=== PATIENT | female | born 1965 | race Caucasian/White ===

== ENCOUNTER 2017-10-28 19:32 | Emergency (ER) | payer OTHER ==
[2017-10-28 19:43] VITALS: BP 125/74
== END 2017-10-28 22:10 | disposition left against medical advice (07) ==
LOC: ED 19:32
DX: R10.9 Unspecified abdominal pain (principal); Z53.21 Procedure and treatment not carried out due to patient leaving prior to being seen by health care provider

== ENCOUNTER 2017-10-29 08:37 | Day surgery (SDC) | payer OTHER ==
[2017-10-29] MEDS ORDERED: NS 0.9% 1000 ML* 1,000 ML IV ONE (09:25)
[2017-10-29] MEDS ORDERED: Ondansetron INJ* 2 MG/ML VIAL IV ONE (09:25)
[2017-10-29 09:47] LABS: ABS Basophils 0 10^3/ul (0-0.2); ABS Eosinophils 0.1 10^3/ul (0-0.6); ABS Lymphocytes 1.6 10^3/ul (1.0-4.8); ABS Monocytes 0.6 10^3/ul (0-0.8); ABS Neutrophils 5.2 10^3/ul (1.5-7.7); ABS Nucleated RBC 0 10^3/ul; Eosinophil % 1.8 % (0-6); Hematocrit 37 % (35-47); Hemoglobin 12.7 g/dl (12.0-16.0); Lymphocyte % 21.8 % (25-47); Mean Corpuscular HGB Conc 34 g/dl (31-36); Mean Corpuscular Hemoglobin 29 pg (27-31); Mean Corpuscular Volume 85 fL (80-97); Nucleated Red Blood Cells % 0; Platelet Count 203 10^3/ul (150-450); Red Blood Count 4.35 10^6/ul (4.0-5.4); Red Cell Distribution Width 14 % (10.5-15); White Blood Count 7.6 10^3/ul (3.5-10.8)
[2017-10-29 09:49] LABS: Urine Appearance Clear; Urine Blood Negative (Negative); Urine Color Yellow; Urine Ketones Negative (Negative); Urine Protein Negative (Negative); Urine Specific Gravity 1.003 (1.010-1.030); Urine Urobilinogen Negative (Negative)
--- NOTE | 2017-10-29 10:04 | RAD ---
INDICATION: Right lower abdominal pain. COMPARISON: Comparison is made with a prior pelvic ultrasound from May 24, 2008. TECHNIQUE: Multiple real-time transvaginal images of the pelvis were obtained. FINDINGS: The uterus is normal in size and heterogeneous in echogenicity. The uterus measured 7.6 x 3.7 x 4.6 cm. The endometrial echo measured 0.4 cm in thickness. There is a small mass arising from the posterior body of the uterus which appears to be in a subserosal location measuring 1.6 x 1.1 x 1.3 cm most consistent with a fibroid. The right ovary measured 2.3 x 1.4 x 1.7 cm. The left ovary measured 1.2 x 1.3 x 1.2 cm. There is vascular flow within both ovaries. No free intraperitoneal fluid is seen. IMPRESSION: 1. NO EVIDENCE FOR ACUTE FINDING. 2. SMALL SUBSEROSAL LEIOMYOMA.
[2017-10-29 10:06] LABS: EGFR Non-African American 91.7 (>60)
[2017-10-29] MEDS ORDERED: Iohexol 300* (CONTRAST) 10 ML SDV IV ONE (10:19)
[2017-10-29] MEDS ORDERED: Ondansetron ODT TAB* 4 MG ONE (10:26)
[2017-10-29] MEDS ORDERED: Ondansetron ODT TAB* 4 MG PO ONE (10:30)
--- NOTE | 2017-10-29 10:57 | RAD ---
Indication: Right lower quadrant pain. Contrast: Administered 100.4 ml of OMNIPAQUE 300 mg/ml CT of the abdomen and pelvis was performed after oral and IV contrast administration. Coronal and sagittal reconstructed images were obtained. The lung bases demonstrate no pleural fluid, nodules or masses. Heart is of normal size without evidence of pericardial effusion. The liver is normal in size. No focal lesions or intrahepatic ductal dilatation is noted. The gallbladder has been surgically resected. Common duct measures 15 mm but this appears to be due to postcholecystectomy state. Pancreas demonstrates no mass or pancreatic ductal dilatation. No adrenal masses are noted. The kidneys demonstrate symmetric nephrograms without focal lesions. No retroperitoneal lymphadenopathy is noted. No dilated loops of bowel are noted. The retroperitoneal lymphadenopathy is noted.. Duodenal bulb and sweep are unremarkable. No retroperitoneal adenopathy is noted. Aorta and inferior vena cava is unremarkable. No evidence of abnormal adenopathy is noted. The urinary bladder is unremarkable. No adrenal masses are noted. The kidneys demonstrate symmetric nephrograms without focal lesions. The base of the cecum is thickened. The appendix is visualized and measures approximately 7 mm in diameter. There may be some fluid and a appendicolith present. This is consistent with appendicitis. There is periappendiceal infiltration of FAT noted. No dilated loops of bowel are noted. The urinary bladder is unremarkable. Uterus and ovaries are unremarkable. The colon is filled with stool. The bony structures are grossly unremarkable with degenerative disc disease noted. IMPRESSION: Findings consistent with appendicitis and 7 mm appendix and appendicolith and periappendiceal infiltration of fat. There is thickening of the base of the cecum.
[2017-10-29] MEDS ORDERED: ceFOXitin 2 GM IVPREMIX* 2 GM/50 ML BAG IVPB ONE ×2 (11:03→13:26)
[2017-10-29] MEDS ORDERED: Ondansetron INJ* 2 MG/ML VIAL IV PRN ×2 (13:24→16:45)
[2017-10-29] MEDS ORDERED: HYDROmorphone INJ* 1 MG/ML CARPUJECT SYRINGE IV SLOW PU PRN (13:25)
[2017-10-29] MEDS ORDERED: NS 0.9% 1000 ML* 1,000 ML IV SCH (13:30)
--- NOTE | 2017-10-29 13:50 | HP ---
DATE OF ADMISSION: 10/29/2017. CHIEF COMPLAINT: Abdominal pain. HISTORY OF PRESENT ILLNESS: The patient is a 52-year-old female who presents with a chief complaint of abdominal pain. This started yesterday evening. It was originally more centralized and then shifted more to the right lower quadrant. They came to the emergency room last night, but the wait was so long they ended up going home. She came back this morning with still persisting pain. It has not gotten any worse overnight. She has no nausea, no vomiting, no fever, no chills, no diarrhea, no change in bowel or bladder function, no accident, injury or trauma, no antecedent illness, no recent GI bug, and no history of kidney stones. PAST MEDICAL HISTORY: Relatively benign. No major issues. PAST SURGICAL HISTORY: She had a tubal ligation many years ago and a laparoscopic cholecystectomy three years ago. MEDICATIONS: She denies regular medications. She occasionally takes over-the- counter Zantac for some heartburn symptoms. She takes [id number] ibuprofen for some arthritis symptoms. She takes some vitamins. ALLERGIES: She quotes ALLERGY TO AUGMENTIN WHICH CAUSED SOME GI UPSET AT THE TIME. FAMILY HISTORY: Noncontributory. There are no anesthesia reactions or bleeding or clotting disorders. SOCIAL HISTORY: She is . 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 She quit smoking many years ago. She does not drink on a daily basis and does not use any drugs or illicit substances. REVIEW OF SYSTEMS: Benign. No major cardiac issue. No emphysema, bronchitis or other pulmonary disease. No hepatobiliary history other than the gallbladder surgery. She has never had hepatitis or jaundice. No diabetes, thyroid, or other endocrine. She has had occasional reflux or GERD symptoms and takes occasional medicine for that, but other than that, no GI history, no colitis, irritable bowel, spastic colon, or the like. No history of kidney stones or chronic bladder infections. No major gynecologic issues. She had the tubal ligation as noted above. She has also had a relatively recent cervical biopsy that proved to be benign. She has no neuro, muscular, or psych issues. She does have occasional headaches or migraines. She has no bleeding tendencies or anesthesia reaction. PHYSICAL EXAMINATION GENERAL: She is well-developed, well-nourished female consistent with stated age. SKIN: Warm and well-perfused. She is not diaphoretic. She is no jaundice. VITAL SIGNS: Temperature 97.1, pulse 62 and regular, respirations 16 and unlabored, O2 saturation 98 percent, blood pressure 127/80. NECK: Supple without any adenopathy. LUNGS: Clear bilaterally. HEART: Regular, no abnormalities. ABDOMEN: Slightly chunky, soft, and tender in the right lower quadrant. There is a trace Rovsing sign, trace referred rebound sign. No palpable masses or hernias. She has evidence of previous laparoscopic surgery which appears well- healed. EXTREMITIES: Well-perfused and without edema. LABORATORY DATA: Normal white blood count with a slight left shift, normal platelet and hemoglobin. Electrolytes are normal. Her C-reactive protein is elevated at 65. Urinalysis is essentially normal. She has had a pelvic ultrasound which is benign and has has an abdominal CT scan which shows early acute appendicitis. IMPRESSION: Healthy, 52-year-old female with evidence of early acute appendicitis. PLAN/RECOMMENDATIONS: I discussed this with her. We talked about the pros and cons of operative intervention versus the nonoperative antibiotic approach, the difference in length of stay, recovery, risks, and long-term benefits. We have gone over all these issues and she would like to proceed with laparoscopic appendectomy. We will do so as the operative schedule permits. [id number]/[facility] #: [id number] MARSHALL
[2017-10-29] MEDS ORDERED: Dexamethasone IV* 4 MG/ML 1 ML (4 MG) IV SLOW PU ONE (14:21)
[2017-10-29] MEDS ORDERED: Famotidine IV* 10 MG/ML 2 ML (20 mg) IV ONE (14:21)
[2017-10-29] MEDS ORDERED: Buffered Lidocaine 0.9% SYRIN* 5 ML/SYR SYRINGE INTRADERM ONE (14:21)
[2017-10-29] MEDS ORDERED: Famotidine IV* 10 MG/ML 2 ML (20 mg) ONE (15:38)
[2017-10-29] MEDS ORDERED: Dexamethasone IV* 4 MG/ML 1 ML (4 MG) ONE (15:38)
[2017-10-29] MEDS ORDERED: Bupivacaine 0.25% SDV* 30 ML ONE (16:10)
[2017-10-29] MEDS ORDERED: fentaNYL* 50 MCG/ML 5 ML VIAL (250 MCG VIAL) ONE (16:18)
[2017-10-29] MEDS ORDERED: Midazolam* 1 MG/ML 5 ML VIAL (5 MG) ONE (16:19)
[2017-10-29] MEDS ORDERED: Propofol* 10 MG/ML 20 ML BTL IV PUSH ONE (16:20)
[2017-10-29] MEDS ORDERED: Lidocaine 2% PF * 5 ML VIAL ONE (16:20)
[2017-10-29] MEDS ORDERED: Ketorolac INJ* 30 MG/ML 1 ML VIAL ONE (16:20)
[2017-10-29] MEDS ORDERED: oxyCODONE/Acetamin 5/325 MG* TAB PO PRN (16:32)
[2017-10-29] MEDS ORDERED: fentaNYL* 50 MCG/ML 2 ML VIAL (100 MCG VIAL) IV PRN (16:45)
[2017-10-29] MEDS ORDERED: Naloxone* 0.4 MG/ML 1 ML VIAL IV PRN (16:45)
[2017-10-29] MEDS ORDERED: DiMENhydriNATE IV* 50 MG/ML VIAL IV PUSH PRN (16:45)
[2017-10-29] MEDS ORDERED: HYDROmorphone INJ* 1 MG/ML CARPUJECT SYRINGE IV PRN (16:45)
[2017-10-29] MEDS ORDERED: Glycopyrrolate IV* 0.2 MG/ML 1 ML VIAL ONE (17:20)
[2017-10-29] MEDS ORDERED: Neostigmine Methylsulfate* 1 MG/ML 10 ML VIAL (1 mg/ml) ONE (17:20)
[2017-10-29 18:10] VITALS: BP 124/77
--- NOTE | 2017-10-29 18:57 | ED ---
Shady Love Jennifer, scribed for Ajith Figueroa MD on 10/29/17 at 0924 . Abdominal Pain/Female - HPI Summary HPI Summary: The patient is a 52 year old female who presents with abdominal pain since 1430 yesterday. The pain is located in the RLQ and radiates to the right flank. The patient states that the pain will change with movement and worsened in severity last night to across her whole abdomen. The pain is alleviated when she puts her legs up. She additionally complains of nausea. Patient denies vomiting, hematuria, dysuria, bloody stool, and black stool. - History of Current Complaint Chief Complaint: EDFlankPain Stated Complaint: ABDOMINAL PAIN Time Seen by Provider: 10/29/17 08:58 Hx Obtained From: Patient ?: No Onset/Duration: Sudden Onset, Lasting Hours, Lasting Days - one day, Still Present Severity Initially: Moderate Severity Currently: Moderate Pain Intensity: 4 Pain Scale Used: 0-10 Numeric Location: Diffuse - sometimes diffuse depending on position, Discrete At: RLQ Radiates: Yes Radiates to: Flank - Right Character: Sharp Aggravating Factor(s): Movement Alleviating Factor(s): Other: - Legs up Associated Signs and Symptoms: Positive: Other: - abdominal pain, flank pain, nausea. NEGATIVE: vomiting, hematuria, dysuria, bloody stool, black stool Allergies/Adverse Reactions: Allergies Allergy/AdvReac Type Severity Reaction Status Date / Time amoxicillin [From Augmentin] Allergy Nausea And Verified 10/29/17 08:46 Vomiting clavulanic acid Allergy Nausea And Verified 10/29/17 08:46 [From Augmentin] Vomiting Home Medications: Home Medications Cholecalciferol TAB* [Vitamin D TAB*] 1,000 unit PO DAILY 10/29/17 [History Confirmed 10/29/17] Ferrous Sulfate TAB* 325 mg PO DAILY 10/29/17 [History Confirmed 10/29/17] Lactobacillus Acidophilus* [Culturelle*] 1 cap PO DAILY 10/29/17 [History Confirmed 10/29/17] Multivitamins/Minerals TAB* [Theragran/minerals TAB*] 1 tab PO DAILY 10/29/17 [ History Confirmed 10/29/17] Naproxen TAB* [Naprosyn 250 mg TAB*] 500 mg PO DAILY 10/29/17 [History Confirmed 10/29/17] PMH/Surg Hx/FS Hx/Imm Hx Endocrine/Hematology History: Denies: Hx Diabetes Cardiovascular History: Denies: Hx Hypertension GI History: Reports: Hx Gastroesophageal Reflux Disease - PRN MEDICATION FOR Musculoskeletal History: Reports: Other Musculoskeletal History - BUNIONS BOTH FEET Sensory History: Reports: Hx Contacts or Glasses - READING GLASSES Denies: Hx Hearing Aid Opthamlomology History: Reports: Hx Contacts or Glasses - READING GLASSES Neurological History: Reports: Hx Migraine - TREATS WITH EXCEDRIN MIGRAINE OR IBUPROFEN - Cancer History Hx Chemotherapy: No Hx Radiation Therapy: No - Surgical History Surgery Procedure, Year, and Place: TUBAL [id number]-12 YEARS AGO. AGE 12- MOLE REMOVED FROM THE SIDE OF FACE. CHOLECYSTECTOMY Hx Anesthesia Reactions: Yes - HEADACHE AFTER TUBAL LIGATION- STATES WAS A GENERAL ANESTHESIA Infectious Disease History: No Infectious Disease History: Denies: Traveled Outside the [place] in Last 30 Days - Family History Known Family History: Negative: Renal Disease - Social History Alcohol Use: Occasionally Hx Substance Use: No Substance Use Type: Reports: None Hx Tobacco Use: No Smoking Status (MU): Former Smoker Amount Used/How Often: 1 PPD X 5-6 YEARS Have You Smoked in the Last Year: No Review of Systems Negative: Fever, Chills Negative: Erythema Negative: Sore Throat Negative: Chest Pain Negative: Shortness Of Breath, Cough Gastrointestinal: Negative - Bloody/black stool Positive: Abdominal Pain - RLQ, Nausea. Negative: Vomiting Positive: flank pain - right. Negative: dysuria, hematuria Negative: Myalgia, Edema Negative: Rash Neurological: Negative - Dizziness All Other Systems Reviewed And Are Negative: Yes Physical Exam - Summary Physical Exam Summary: Constitutional: Well-developed, Well-nourished, Alert. (-) Distressed Skin: Warm, Dry HENT: Normocephalic; Atraumatic Eyes: Conjunctiva normal Neck: Musculoskeletal ROM normal neck. (-) JVD, (-) Stridor, (-) Tracheal deviation Cardio: Rhythm regular, rate normal, Heart sounds normal; Intact distal pulses; The pedal pulses are 2+ and symmetric. Radial pulses are 2+ and symmetric. (-) Murmur Pulmonary/Chest wall: Effort normal. (-) Respiratory distress, (-) Wheezes, (-) Rales Abd: Soft, exquisite RLQ tenderness, no CVA tenderness. (-) Distension, (-) Guarding, (-) Rebound Musculoskeletal: (-) Edema Lymph: (-) Cervical adenopathy Neuro: Alert, Oriented x3 Psych: Mood and affect Normal Triage Information Reviewed: Yes Vital Signs On Initial Exam: Initial Vitals Temp Pulse Resp BP Pulse Ox 97.1 F 79 16 122/76 98 10/29/17 08:47 10/29/17 08:47 10/29/17 08:47 10/29/17 08:47 10/29/17 08:47 Vital Signs Reviewed: Yes Diagnostics - Vital Signs Vital Signs Temp Pulse Resp BP Pulse Ox 10/29/17 08:47 97.1 F 79 16 122/76 98 - Laboratory Result Diagrams: 10/29/17 09:37 10/29/17 09:37 Lab Statement: Any lab studies that have been ordered have been reviewed, and results considered in the medical decision making process. - CT CT Abd/Pel CT Interpretation: Positive (See Comments) - Findings consistent with appendicitis and 7 mm appendix and appendicolith and periappendiceal infiltration of fat. There is thickening of the base of the cecum. Dr. Figueroa has reviewed this report. CT Interpretation Completed By: Radiologist - Additional Comments Diagnostic Additional Comments: Transvaginal US. Interpreted by a radiologist. IMPRESSION: 1. NO EVIDENCE FOR ACUTE FINDING. 2. SMALL SUBSEROSAL LEIOMYOMA. Dr. Figueroa has reviewed this report. Abdominal Pain Fem Course/Dx - Course Course Of Treatment: The patient is a 52 year old female who presents with abdominal pain since 1430 yesterday. In the ED course the patient was given IV fluids and Zofran. Bloodwork and Urinalysis were obtained. CT Abd/Pel showed Findings consistent with appendicitis and 7 mm appendix and appendicolith and periappendiceal infiltration of fat. There is thickening of the base of the cecum. US Transvaginal obtained. The patient is diagnosed with appendicitis. Dr. Hoff, surgeon, admitted the patient. - Diagnoses Provider Diagnoses: Appendicitis - Provider Notifications Discussed Care Of Patient With: Jose Manuel Hoff Time Discussed With Above Provider: 11:08 Instructed by Provider To: Admit As Inpatient Discharge - Sign-Out/Discharge Documenting (check all that apply): Discharge/Admit/Transfer - Discharge Plan Condition: Fair Disposition: ADMITTED TO [facility] Referrals: No Primary Care Phys,NOPCP [Primary Care Provider] - The documentation as recorded by the Shady eugene Jennifer accurately reflects the service I personally performed and the decisions made by me, Ajith Figueroa MD.
--- NOTE | 2017-10-30 06:09 | OP ---
CC: Dr. Hoff OPERATIVE REPORT: DATE OF OPERATION: 10/29/17 DATE OF : 61 SURGEON: Jose Manuel Hoff MD DREDGE PUMPER: None. ANESTHESIOLOGIST: Derrek Sánchez MD ANESTHESIA: General anesthetic, local infiltration. PRE-OP DIAGNOSIS: Appendicitis. POST-OP DIAGNOSIS: Appendicitis. OPERATIVE PROCEDURE: Laparoscopic appendectomy. DESCRIPTION OF PROCEDURE: The patient was supine on the operating room table. After adequate general anesthetic, compression stockings, Ivan Hugger warmer, and intravenous antibiotics, the abdomen was prepped with antiseptic, draped in a sterile fashion. Local infiltrative anesthesia was administered . Small umbilical incision was created. Blunt port cannula was placed. Insufflation was carried ou t with carbon dioxide. Additional cannulae, 5 mm left lower quadrant and left mid abdomen, were plac ed through small stab wounds under direct vision. The cecum was readily identified and the appendix was turgid and somewhat injected and hyperemic. It was tented upward. A window was created between t he mesentery and the base of the appendix and the mesentery was divided with a espinosa load of the EndoG IA stapler. The base of the appendix was divided with a nelson load of the EndoGIA stapler. The appendi x was placed in a retrieval bag and brought out through the umbilical site. At the distal end of the staple line, there was little oozing, so a couple of clips were placed over this area to achieve hemo stasis. Everything was in good condition. The cannulae were removed. Pneumoperitoneum allowed to e scape. Umbilical fascia was closed with 0 Vicryl, skin with 5-0 Vicryl, followed by Steri- Strips. S he tolerated the procedure well, was awakened, and brought to Recovery in good condition. No complic ations. No drains. Pathologic specimen was appendix. Sponge and instrument counts correct. Estimat ed blood loss was less than 10 mL. [id number]/[facility] #: [id number]
== END 2017-10-29 18:35 | disposition home or self-care (01) ==
LOC: ED 08:37 → OR 13:35
PROVIDERS: ATTEND Surgery
DX: K35.80 Unspecified acute appendicitis (principal); R10.31 Right lower quadrant pain; R11.0 Nausea; K21.9 Gastro-esophageal reflux disease without esophagitis; Z87.891 Personal history of nicotine dependence; D25.2 Subserosal leiomyoma of uterus; M19.90 Unspecified osteoarthritis, unspecified site
CPT/HCPCS: 36415; 74177; 76830; 80053; 81003; 83605; 83690; 85025; 86140; 88304; 99285; A9270-GY; C1776; J0694; J1100; J1885; J2250; J2704; J2710; J3010; Q9967

== ENCOUNTER 2017-11-16 19:53 | Emergency (ER) | payer OTHER ==
--- OUTSIDE RECORDS SUMMARY | 2017-11-16 20:12 | XMS REPORT ---
:1965 External Reference #:[id number] Author Organization [facility] Address [address] [address] Phone [phone] Care Team Providers Name Role Phone DAYAN Lees Care Team Information Dealer Accounts Investigator Unavailable Payers Type Date Identification Numbers Payment Provider Subscriber Commercial Policy Number: [id number] [employer] Laine Cruz PayID: [id number] [address] [place] [address] Medigap Part B Expires: Policy Number: [employer] Insurance Laine Love 2017 [id number] Anthony Group Number: [id number] [address] Group Name: [place] [address] PayID: [id number] Problems Description No Information Social History Type Date Description Comments Smoking Patient is a former smoker Allergies, Adverse Reactions, Alerts Date Description Reaction Status Severity Comments 11/03/2017 Augmentin Nausea and Vomiting active Medications Medication Date Status Form Strength Qnty SIG Indications Ordering Provider Zantac 75 Active Tablets 75mg take 1 tab Unknown 0 by mouth at at bedtime as needed Ibuprofen Active Capsules 200mg as needed Unknown 0 Vital Signs Date Vital Result Comment 11/05/2017 Height 66 inches 5'6" Weight 165.00 lb Heart Rate 68 /min BP Systolic 124 mmHg BP Diastolic 82 mmHg Respiratory Rate 16 /min Body Temperature 96.6 F BMI (Body Mass Index) 26.6 kg/m2 Results Test Date Test Result H/L Range Note Laboratory test 10/29/2017 Surgical Pathology SEE RESULT BELOW 1 finding 1 SEE RESULT BELOW Name: LAINE CRUZ : [address]: Jose Manuel Hoff MD Acct: [id number] Unit: [id number] AGE: 52 Location: OR Re10/29/17 SEX: F Status: DEP [facility] SPEC: [id number] DELVIN: 10/29/17-[address] [facility] [address]: Jose Manuel Hoff MD REQ: [id number] RECD: 10/31/17-1019 STATUS: SOUT _ ORDERED: LEVEL 3 FINAL DIAGNOSIS Appendix, appendectomy: -- Acute appendicitis and jeanne-appendicitis. PRE-OPERATIVE DIAGNOSIS Abdominal pain GROSS DESCRIPTION The specimen is received in formalin labeled, Appendix, and consists of an 8.7 x 0.6 cm vermiform appendix with abundant attached mesoappendix. The serosa is glistening smooth nelson-white with a few focal fibromembranous adhesions. The lumen measures up to 0.4 cm and contains scant fecal material. The mucosa is nelson-white and the wall thickness averages 0.2 cm. Torch Cutter sections, one cassette. Signed by and Reported on: Minda Hunter MD 11/02/17 1508 END OF REPORT DEPARTMENT OF PATHOLOGY, [address] [place] [address] Declan Shah M.D. Director [facility] # [id number] Procedures Date CPT Code Description Status 10/29/2017 33764 Laparoscopy, Surgical, Appendectomy Completed 02/28/2015 51375 Laparoscopy Cholecystectomy Completed Encounters Type Date Location Provider CPT E/M Dx Office Visit 10/29/2017 [facility], [address] K35.80 7:00a Marcelo Castro Plan of Care 11/05/2017 - Jose Manuel Hoff M.D.K35.80 Unspecified acute appendicitisFollow up :As needed
[2017-11-16] MEDS ORDERED: Metoclopramide IV* 5 MG/ML 2 ML VIAL IV ONE (21:02)
[2017-11-16] MEDS: NS 0.9% 1000 ML* 2,000 ML IV ONE ×2 (21:10→21:14)
[2017-11-16 21:20] LABS: ABS Basophils 0 10^3/ul (0-0.2); ABS Eosinophils 0 10^3/ul (0-0.6); ABS Lymphocytes 0.7 10^3/ul (1.0-4.8); ABS Monocytes 0.3 10^3/ul (0-0.8); ABS Neutrophils 3.9 10^3/ul (1.5-7.7); ABS Nucleated RBC 0 10^3/ul; Eosinophil % 0.4 % (0-6); Hematocrit 36 % (35-47); Hemoglobin 12.2 g/dl (12.0-16.0); Lymphocyte % 14.8 % (25-47); Mean Corpuscular HGB Conc 34 g/dl (31-36); Mean Corpuscular Hemoglobin 29 pg (27-31); Mean Corpuscular Volume 86 fL (80-97); Mean Platelet Volume 7.2 um3 (7.4-10.4); Nucleated Red Blood Cells % 0; Platelet Count 235 10^3/ul (150-450); Red Blood Count 4.15 10^6/ul (4.0-5.4); Red Cell Distribution Width 14 % (10.5-15)
[2017-11-16 21:51] LABS: EGFR Non-African American 108.3 (>60)
[2017-11-16 23:13] LABS: Urine Appearance Clear; Urine Blood Negative (Negative); Urine Color Straw; Urine Ketones 1+ (Negative); Urine Protein Negative (Negative); Urine Specific Gravity 1.004 (1.010-1.030); Urine Urobilinogen Negative (Negative)
--- NOTE | 2017-11-16 23:24 | ED ---
Eugenia Love Rebecca, scribed for Amy Etienne MD on 11/16/17 at 2101 . Complex/Multi-Sys Presentation - HPI Summary HPI Summary: Pt is a 52 y/o F who presents to ED c/o N/V. Sx began this morning at 0230 after taking Penicillin at 0230 and Tylenol with codeine at 0100. Denies abdominal pain and diarrhea. 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 Has eaten today, though she vomited it up. She is taking Penicillin for an infected tooth and the dose this morning was her third, having taken the prior 2 without problems. Prior similar episode after taking Augmentin. - History Of Current Complaint Chief Complaint: EDNauseaVomitDiarrh Time Seen by Provider: 11/16/17 20:49 Hx Obtained From: Patient Onset/Duration: Lasting Hours, Still Present Severity Currently: None Location: Negative Associated Signs And Symptoms: Positive: Nausea, Vomiting. Negative: Diarrhea, Abdominal Pain - Allergies/Home Medications Allergies/Adverse Reactions: Allergies Allergy/AdvReac Type Severity Reaction Status Date / Time amoxicillin [From Augmentin] Allergy Nausea And Verified 11/16/17 20:02 Vomiting clavulanic acid Allergy Nausea And Verified 11/16/17 20:02 [From Augmentin] Vomiting PMH/Surg Hx/FS Hx/Imm Hx Endocrine/Hematology History: Denies: Hx Diabetes Cardiovascular History: Denies: Hx Hypertension GI History: Reports: Hx Gastroesophageal Reflux Disease - PRN MEDICATION FOR Musculoskeletal History: Reports: Other Musculoskeletal History - BUNIONS BOTH FEET Sensory History: Reports: Hx Contacts or Glasses - READING GLASSES Denies: Hx Hearing Aid Opthamlomology History: Reports: Hx Contacts or Glasses - READING GLASSES Neurological History: Reports: Hx Migraine - TREATS WITH EXCEDRIN MIGRAINE OR IBUPROFEN - Cancer History Hx Chemotherapy: No Hx Radiation Therapy: No - Surgical History Surgery Procedure, Year, and Place: TUBAL [id number] YEARS AGO. AGE 12- MOLE REMOVED FROM THE SIDE OF FACE. CHOLECYSTECTOMY Hx Anesthesia Reactions: Yes - HEADACHE AFTER TUBAL LIGATION- STATES WAS A GENERAL ANESTHESIA Infectious Disease History: No Infectious Disease History: Denies: Traveled Outside the [place] in Last 30 Days - Family History Known Family History: Negative: Renal Disease - Social History Alcohol Use: Occasionally Hx Substance Use: No Substance Use Type: Reports: None Hx Tobacco Use: No Smoking Status (MU): Former Smoker Amount Used/How Often: 1 PPD X 5-6 YEARS Have You Smoked in the Last Year: No Review of Systems Negative: Fever Positive: Vomiting, Nausea. Negative: Abdominal Pain, Diarrhea All Other Systems Reviewed And Are Negative: Yes Physical Exam - Summary Physical Exam Summary: VITAL SIGNS: Reviewed. GENERAL: ~Patient is a well-developed and nourished female who is lying comfortable in the stretcher. Patient is not in any acute respiratory distress. HEAD AND FACE: No signs of trauma. No ecchymosis, hematomas or skull depressions. No sinus tenderness. EYES: PERRLA, EOMI x 2, No injected conjunctiva, no nystagmus. EARS: Hearing grossly intact. Ear canals and tympanic membranes are within normal limits. MOUTH: Oropharynx within normal limits. NECK: Supple, trachea is midline, no adenopathy, no JVD, no carotid bruit, no c- spine tenderness, neck with full ROM. CHEST: Symmetric, no tenderness at palpation LUNGS: Clear to auscultation bilaterally. No wheezing or crackles. CVS: Regular rate and rhythm, S1 and S2 present, no murmurs or gallops appreciated. ABDOMEN: Soft, non-tender. No signs of distention. No rebound no guarding, and no masses palpated. Mild hyperactive bowel sounds. EXTREMITIES: FROM in all major joints, no edema, no cyanosis or clubbing. NEURO: Alert and oriented x 3. No acute neurological deficits. Speech is normal and follows commands. SKIN: Dry and warm Triage Information Reviewed: Yes Vital Signs On Initial Exam: Initial Vitals Temp Pulse Resp BP Pulse Ox 96.8 F 86 16 135/83 98 11/16/17 19:58 11/16/17 19:58 11/16/17 19:58 11/16/17 19:58 11/16/17 19:58 Vital Signs Reviewed: Yes Diagnostics - Vital Signs Vital Signs Temp Pulse Resp BP Pulse Ox 11/16/17 19:58 96.8 F 86 16 135/83 98 - Laboratory Result Diagrams: 11/16/17 21:14 11/16/17 21:14 Lab Statement: Any lab studies that have been ordered have been reviewed, and results considered in the medical decision making process. Re-Evaluation - Re-Evaluation First Eval Re-Evaluation Time: 22:29 Change: Improved Comment: Pt is feeling better. Complex Multi-Symp Course/Dx Assessment/Plan: Pt is a 52 y/o F who presents to ED c/o N/V since this morning at 0230 after taking Penicillin at 0230 and Tylenol with codeine at 0100, without abdominal pain and diarrhea. Taking Penicillin for an infected tooth and the dose this morning was her third, having taken the prior 2 without problems. Prior similar episode after taking Augmentin. Blood work was done. In the ED course, pt received Reglan and fluids which improved sx. She will be D/C to home with Dx of gastritis and vomiting with Rx for Reglan. She understands and agrees. Allergies noted. - Diagnoses Provider Diagnoses: Gastritis, Vomiting Discharge - Sign-Out/Discharge Documenting (check all that apply): Discharge/Admit/Transfer - Discharge - Discharge Plan Condition: Stable Disposition: HOME Prescriptions: Metoclopramide TAB* [Reglan TAB*] 10 mg PO Q6H PRN #20 tab PRN Reason: Nausea/Vomiting Patient Education Materials: Gastritis (ED), Acute Nausea and Vomiting (ED) Referrals: No Primary Care Phys,NOPCP [Primary Care Provider] - [facility] PHYSICIAN REFERRAL [Outside] - 3 Days Additional Instructions: RETURN TO ED FOR ANY NEW OR WORSENING SYMPTOMS. The documentation as recorded by the Eugenia eugene Rebecca accurately reflects the service I personally performed and the decisions made by , Amy Etienne MD.
[2017-11-16 23:29] VITALS: BP 132/79
== END 2017-11-16 23:33 | disposition home or self-care (01) ==
LOC: ED 19:53
DX: K29.70 Gastritis, unspecified, without bleeding (principal); R11.2 Nausea with vomiting, unspecified
CPT/HCPCS: 36415; 80053; 81003; 82150; 83605; 83690; 85025; 85730; 86140; 96374; 99283; J2765

== ENCOUNTER 2018-12-18 13:18 | Emergency (ER) | payer OTHER ==
--- OUTSIDE RECORDS SUMMARY | 2018-12-18 13:32 | XMS REPORT ---
:1965 Author Organization [facility] Care Team Providers Name Role Phone Misael Mayo Unavailable Unavailable PROBLEMS Type Condition ICD9-CM Code [id number] Code Onset Condition SNOMED Code Dates Status Problem Gallbladder 575.6 Active 339634387 polyp Problem GERD 530.81 Active 220108896 (gastroesophagea l reflux disease) Problem Migraines 346.90 Active 54063532 ALLERGIES No Information ENCOUNTERS Encounter Location Date Diagnosis [facility] [address] [facility] [place], [place] [address] [facility] - Resource - [place] [address] [facility] Dec, [place] [address] [facility] [address] [facility] [place], Dec, [place] K52.9 [place] [address] [facility] [address] [facility] Dec, [place] [address] [facility] [address] [facility] [place], [place] [address] [facility] [address] [facility] [place], Nov, [place] [address] medical examination without abnormal findings Z00.00 ; Encounter for HCV screening test for low risk patient Z11.59 ; Sebaceous cyst L72.3 and BMI 28.0-28.9,adult Z68.28 [facility] [address] [facility] [place], [place] [address] Nov, [place] [address] [facility] [address] [facility] [place], Nov, Dental [place] K04.7 [place] [address] Aug, [place] [address] [facility] [address] [facility] [place], [place] [address] [facility] [address] [facility] [place], [place] [address] Jan, [place] [address] [place], Dec, Gallbl[place] 575.9 [place] [address] Kathleen [facility] [address] [place] [address] [place], Nov, Ab[place] 789.00 [place] [address] [place] [facility] [address] [place] [address] [place], [place] [address] [place], October, Abdominal [place] 789.00 [place] [address] IMMUNIZATIONS No Known Immunizations SOCIAL HISTORY Never Assessed REASON FOR REFERRAL FUNCTIONAL STATUS PLAN OF CARE VITAL SIGNS MEDICATIONS Unknown Medications PROCEDURES No Known procedures RESULTS No Results REASON FOR VISIT Acute Triage Insurance Providers [facility] Member Patient Patient Patient Patient Patient Subscriber Subscriber Subscriber Group Insurance Plan Plan Plan Plan ID Relationship Address Phone Name Date of ID Name Date of No Type Insurance Insurance Insurance Coverage to Subscriber Address Phone Name Dates Aetna Open [phone] Aetna Open self Jacquerizwan [id number] Access [id number] Access ne Medical [place] Medical [place] [address] Case [phone] Case self Aren [id number] Management [place] 02 Management [place] [id number] [facility] Ameritas [phone] Ameritas self Aren [id number] Life [id number] Life ne Dental [place] [address] MEDICAL (GENERAL) HISTORY Type Description Date Medical History migraines Medical History gerd Medical History Gallbladder polyp Surgical History tubaligation Hospitalization History Child 4 times
--- OUTSIDE RECORDS SUMMARY | 2018-12-18 13:32 | XMS REPORT ---
:1965 Author Organization [facility] Care Team Providers Name Role Phone Misael Mayo Unavailable Unavailable PROBLEMS Type Condition ICD9-CM Code [id number] Code Onset Condition SNOMED Code Dates Status Problem Gallbladder 575.6 Active 385999169 polyp Problem GERD 530.81 Active 109735477 (gastroesophagea l reflux disease) Problem Migraines 346.90 Active 24029318 ALLERGIES No Information ENCOUNTERS Encounter Location Date Diagnosis [place] [facility] [address] [place], [place] [address] [place] [facility] [address] [place], [place] [address] [place] [facility] [address] [place], [place] [address] Nov, [place] [address] [place] [facility] [address] [place], Nov, [place] K04.[place] [address] Aug, [place] [address] [place] [facility] [address] [place], [place] [address] [place] [facility] [address] [place], [place] [address] [facility] [address] [facility] Jan, [place] [address] [place] [facility] [address] [place], Dec, Gallbladder [place] 575.9 [place] [address] [place] [facility] [address] [place], Nov, Abdominal [place] 789.00 [place] [address] [place] [facility] [address] [place], [place] [address] [place] [facility] [address] [place], October, Abdominal [place] 789.00 [place] [address] IMMUNIZATIONS No Known Immunizations SOCIAL HISTORY Never Assessed REASON FOR REFERRAL FUNCTIONAL STATUS PLAN OF CARE VITAL SIGNS MEDICATIONS Medication Instructions Dosage Frequency Start End Duration Status Date Date Probiotic Active Vitamin B Not-Takin Complex g Vitamin D Active (Cholecalcifer ol) 400 UNIT Vitamin C 500 Orally Once a 1 tablet 24h Active MG day Ibuprofen 200 Orally every 6 1 tablet as 6h Active MG hrs needed Excedrin Orally every 6 2 tablets 6h Not-Takin Migraine hrs as needed g 250-250-65 MG PROCEDURES Procedure Date Ordered Result Body Site INTRAORL-PERIAPICAL EA ADD FILM November 29, 2018 INTRAORL-PERIAPICAL 1 FILM [id number] November 29, 2018 LTD ORAL EVALUATION-PROBLEM FOCUS November 29, 2018 RESULTS No Results REASON FOR VISIT Insurance Providers [facility] Member Patient Patient Patient Patient Patient Subscriber Subscriber Subscriber Group Insurance Plan Plan Plan Plan ID Relationship Address Phone Name Date of ID Name Date of No Type Insurance Insurance Insurance Coverage to Subscriber Address Phone Name Dates Ameritas [phone] Ameritas self Aren [id number] Life [id number] Life ne Dental Ins [place] Dental [place] [address] Case [phone] Case self Aren [id number] Management [place] 02 Management ne [facility] [address] On License Of [facility] Aetna Open [phone] Aetna Open self Aren [id number] Access [id number] Access ne Medical [facility] Medical [place] [address] MEDICAL (GENERAL) HISTORY Type Description Date Medical History migraines Medical History gerd Medical History Gallbladder polyp Surgical History tubaligation Hospitalization History Child 4 times
--- OUTSIDE RECORDS SUMMARY | 2018-12-18 13:32 | XMS REPORT ---
:1965 Author Organization [facility] Address [address] [place] [address] Care Team Providers Name Role Phone Yuliya Curran Unavailable Unavailable PROBLEMS Type Condition ICD9-CM Code [id number] Code Onset Condition SNOMED Code Dates Status Problem Gallbladder 575.6 Active 354095309 polyp Problem GERD 530.81 Active 512681531 (gastroesophagea l reflux disease) Problem Migraines 346.90 Active 00911214 ALLERGIES Substance Reaction Event Type Date Status Augmentin N&V Drug Allergy Dec, Active ENCOUNTERS Encounter Location Date Diagnosis [facility] [address] [facility] [place], [place] [address] [facility] Resource - [address] Dec, [place], [place] [address] [place] [address] [place] [address] Dec, [place] [address], Dec, Gastroenteritis K52.9 [place] [address] [facility] [address] [facility] Dec, [place] [address] [facility] [address] [facility] [place], [place] [address] [place] 3086250 [facility] [place], Nov, [place] [address] medical examination without abnormal findings Z00.00 ; Encounter for HCV screening test for low risk patient Z11.59 ; Sebaceous cyst L72.3 and BMI 28.0-28.9,adult Z68.28 [facility] [address] [facility] [place], [place] [address] [facility] [address] [facility] Nov, [place] [address] [facility] [address] [facility] [place], Nov, Dental [place] K04.7 [place] [address] [facility] [address] [facility] Aug, [place] [address] [facility] [address] [facility] [place], [place] [address] [facility] [address] [facility] [place], [place] [address] [facility] [address] Jan, [place] [address] [facility] [address] [facility] [place], Dec, Gallbladder [place] 575.9 [place] [address] [facility] [address] [facility] [place], Nov, Abdominal pain 789.00 [place] [address] [facility] [address] [facility] [place], [place] [address] [facility] [address] [place] [address] [place], October, Abdominal pain 789.00 [place] [address] IMMUNIZATIONS No Known Immunizations SOCIAL HISTORY Never Assessed REASON FOR REFERRAL FUNCTIONAL STATUS PLAN OF CARE Activity Details Follow Up prn Reason: Pending Test STOOL CULTURE VITAL SIGNS Temperature 97.7 degrees Fahrenheit 2018-12-14 Heart Rate 20 2018-12-14 Weight 164.0 2018-12-14 Height 65.0 in 2018-12-14 BMI 27.29 kg/m2 2018-12-14 Oximetry 97 % 2018-12-14 Blood pressure systolic 114 mm Hg 2018-12-14 Blood pressure diastolic 76 mm Hg 2018-12-14 MEDICATIONS Medication Instructions Dosage Frequency Start End Duration Status Date Date Vitamin D Active (Cholecalcifer ol) 400 UNIT Ibuprofen 200 Orally every 6 1 tablet as 6h Active MG hrs needed Probiotic Active Vitamin B Not-Takin Complex g Excedrin Orally every 6 2 tablets 6h Not-Takin Migraine hrs as needed g 250-250-65 MG Zofran 4 MG Orally twice a 1 tablet Dec, 10 days Active day as needed 2018 for nausea Vitamin C 500 Orally Once a 1 tablet 24h Active MG day PROCEDURES Procedure Date Ordered Result Body Site BODY MASS INDEX DOCD December 14, 2018 SMOKING + 2ND HAND ASSESSED December 14, 2018 Oxygen saturation results documented and reviewed December 14, 2018 BLOOD PRESSURE, MEASURED December 14, 2018 RESULTS Name Result Date Reference Range CLOSTRIDIUM DIFFICILE TOXIN/GDH W/REFL TO PCR 2018-12-14 CLOSTRIDIUM DIFFICILE TOXIN/GDH W/REFL TO PCR SEE NOTE REASON FOR VISIT Acute Nausea/Diarrhea Insurance Providers [facility] Health Member Patient Patient Patient Patient Patient Subscriber Subscriber Subscriber Group Insurance Plan Plan Plan Plan ID Relationship Address Phone Name Date of ID Name Date of No Type Insurance Insurance Insurance Coverage to Subscriber Address Phone Name Dates Ameritas [phone] Ameritas self Aren [id number] Life [id number] Life ne Dental [place] [address] Case [phone] Case self Aren [id number] Management [place] 02 Management ne [facility] [address] [facility] [place] Aetna Open [phone] Aetna Open self Aren [id number] Access [id number] Access ne Medical [place] Medical [place] [address] MEDICAL (GENERAL) HISTORY Type Description Date Medical History migraines Medical History gerd Medical History Gallbladder polyp Surgical History tubaligation Hospitalization History Child 4 times
--- OUTSIDE RECORDS SUMMARY | 2018-12-18 13:32 | XMS REPORT ---
:1965 Author Organization [facility] Address [address] [place] [address] Care Team Providers Name Role Phone Yuliya Curran Unavailable Unavailable PROBLEMS Type Condition ICD9-CM Code [id number] Code Onset Condition SNOMED Code Dates Status Problem Gallbladder 575.6 Active 003382501 polyp Problem GERD 530.81 Active 124042867 (gastroesophagea l reflux disease) Problem Migraines 346.90 Active 15068282 ALLERGIES No Information ENCOUNTERS Encounter Location Date Diagnosis [place] [facility] [address] [facility] [place], [place] [address] [facility] - Resource - [place] [address] [place] [address] Dec, [address] [place] [address] Dec, [place] [address] [facility] [address] [place] [address] [place], Dec, [place]astroenter[place] K52.9 [place] [address] [facility] [address] [facility] Dec, [place] [address] [facility] [address] [facility] [place], [place] [address] [place] 2319050 [facility] [place], Nov, [place] [address] medical examination without abnormal findings Z00.00 ; Encounter for HCV screening test for low risk patient Z11.59 ; Sebaceous cyst L72.3 and BMI 28.0-28.9,adult Z68.28 [place] [facility], [facility] [address] [facility] [place], [place] [address] [facility] [address] [facility] Nov, [place] [address] [facility] [address] [facility] [place], Nov, [place] K04.7 [place] [address] [facility] [address] [facility] Aug, [place] [address] [facility] [address] [facility] [place], [place] [address] [facility] [address] [facility] [place], [place] [address] [facility] [address] Jan, [place] [address] [facility] [address] [facility] [place], Dec, Gallbladder [place] 575.9 [place] [address] [facility] [address] [facility] [place], Nov, Abdominal [place] 789.00 [place] [address] [facility] [address] [facility] [place], [place] [address] [facility] [address] [facility] [place], October, Abdominal [place] 789.00 [place] [address] IMMUNIZATIONS No Known Immunizations SOCIAL HISTORY Never Assessed REASON FOR REFERRAL FUNCTIONAL STATUS PLAN OF CARE VITAL SIGNS MEDICATIONS Medication Instructions Dosage Frequency Start Date End Date Duration Status Flagyl 500 MG Orally every 8 1 tablet 8h Dec, Dec, 10 day(s) Active hrs 2018 2018 PROCEDURES No Known procedures RESULTS No Results REASON FOR VISIT Labs Insurance Providers [facility] Health Member Patient Patient Patient Patient Patient Subscriber Subscriber Subscriber Group Insurance Plan Plan Plan Plan ID Relationship Address Phone Name Date of ID Name Date of No Type Insurance Insurance Insurance Coverage to Subscriber Address Phone Name Dates Ameritas [phone] Ameritas self Jacqueli [id number] Life [id number] Life ne Dental [place] [address] Case [phone] Case self Jacqueli [id number] Management [place] 02 Management [place] [id number] [facility] Anthony Aetna Open [phone] Aetna Open self Jacqueli [id number] Access [id number] Access ne Medical [place] Medical [place] [address] MEDICAL (GENERAL) HISTORY Type Description Date Medical History migraines Medical History gerd Medical History Gallbladder polyp Surgical History tubaligation Hospitalization History Child 4 times
--- OUTSIDE RECORDS SUMMARY | 2018-12-18 13:32 | XMS REPORT ---
:1965 Author Organization [facility] Care Team Providers Name Role Phone Misael Mayo Unavailable Unavailable PROBLEMS Type Condition ICD9-CM Code XUL66-DL Code Onset Condition SNOMED Code Dates Status Problem Gallbladder 575.6 Active 169326045 polyp Problem GERD 530.81 Active 068240505 (gastroesophagea l reflux disease) Problem Migraines 346.90 Active 03813354 ALLERGIES No Information ENCOUNTERS Encounter Location Date Diagnosis [place] [facility] [address] [place], [place] [address] [place] [facility] [address] [facility] [place], [place] [address] Nov, [place] [address] [facility] [address] [facility] [place], Nov, [place] K04.7 [place] [address] Aug, [place] [address] [place] [facility] [address] [place] [place], [place] [address] [place] [facility] [address] [place], [place] [address] [facility] [address] [facility] Jan, [place] [address] [place] [facility] [address] [place], Dec, Gallbl[place] 575.9 [place] [address] [place] [facility] [address] [place], Nov, Abdominal [place] 789.00 [place] [address] [place] [facility] [address] [place], [place] [address] [place] [facility] [address] [place], October, Abdominal [place] 789.00 [place] [address] IMMUNIZATIONS No Known Immunizations SOCIAL HISTORY Never Assessed REASON FOR REFERRAL FUNCTIONAL STATUS PLAN OF CARE VITAL SIGNS MEDICATIONS Unknown Medications PROCEDURES No Known procedures RESULTS No Results REASON FOR VISIT r/s emg appt. Insurance Providers [facility] Member Patient Patient Patient Patient Patient Subscriber Subscriber Subscriber Group Insurance Plan Plan Plan Plan ID Relationship Address Phone Name Date of ID Name Date of No Type Insurance Insurance Insurance Coverage to Subscriber Address Phone Name Dates Case [phone] Case self Aren [id number] Management [place] 02 Management ne [facility] [address] [facility] Ameritas [phone] Ameritas self Aren [id number] Life [id number] Life ne Dental Ins [place] Dental [place] [address] Aetna Open [phone] Aetna Open self Aren [id number] Access [id number] Access ne Medical [place] Medical [place] [address] MEDICAL (GENERAL) HISTORY Type Description Date Medical History migraines Medical History gerd Medical History Gallbladder polyp Surgical History tubaligation Hospitalization History Child 4 times
[2018-12-18] MEDS ORDERED: NS 0.9% 1000 ML** 1,000 ML IV ONE (13:45)
--- NOTE | 2018-12-18 13:53 | ED ---
GI/ HPI - HPI Summary HPI Summary: Patient is a 53 y/o F presenting to ED with complaints of N/V/D and fatigue. She had been diagnosed with cdiff two days ago, 12/16/18, and started on clindamycin and amoxicillin. However, the patient has amoxicillin listed as an allergy. Patient reports that Sx onset yesterday and have continued into today. PMHx of GERD, migraines. PSHx of cholecystectomy. Occasional alcohol usage, former smoker, and no substance usage. On triage, associated severity is rated 8 /10, nothing is noted to aggravate/alleviate Sx. Home medications and allergies are reviewed. - History of Current Complaint Chief Complaint: EDNauseaVomitDiarrh Time Seen by Provider: 12/18/18 13:41 Stated Complaint: DIAGNOSED WITH CDIFF DONT FEEL GOOD PER PT Hx Obtained From: Patient Onset/Duration: Started Days Ago - 12/16/18, Still Present Timing: Lasting Days - 12/16/18 Severity: Severe Current Severity: Severe Pain Intensity: 8 Associated Signs and Symptoms: Positive: Nausea, Vomiting, Diarrhea, Other: - fatigue Aggravating Factor(s): Nothing Alleviating Factor(s): Nothing - Allergy/Home Medications Allergies/Adverse Reactions: Allergies Allergy/AdvReac Type Severity Reaction Status Date / Time amoxicillin [From Augmentin] Allergy Nausea And Verified 12/18/18 13:25 Vomiting clavulanic acid Allergy Nausea And Verified 12/18/18 13:25 [From Augmentin] Vomiting PMH/Surg Hx/FS Hx/Imm Hx Endocrine/Hematology History: Denies: Hx Diabetes Cardiovascular History: Denies: Hx Hypertension GI History: Reports: Hx Gastroesophageal Reflux Disease - PRN MEDICATION FOR Musculoskeletal History: Reports: Other Musculoskeletal History - BUNIONS BOTH FEET Sensory History: Reports: Hx Contacts or Glasses - READING GLASSES Denies: Hx Hearing Aid Opthamlomology History: Reports: Hx Contacts or Glasses - READING GLASSES Neurological History: Reports: Hx Migraine - TREATS WITH EXCEDRIN MIGRAINE OR IBUPROFEN - Cancer History Hx Chemotherapy: No Hx Radiation Therapy: No - Surgical History Surgery Procedure, Year, and Place: TUBAL IMGUEEZE-BRECYHDV-55 YEARS AGO. AGE 12- MOLE REMOVED FROM THE SIDE OF FACE. CHOLECYSTECTOMY Hx Anesthesia Reactions: Yes - HEADACHE AFTER TUBAL LIGATION- STATES WAS A GENERAL ANESTHESIA Infectious Disease History: No Infectious Disease History: Denies: Traveled Outside the [place] in Last 30 Days - Family History Known Family History: Negative: Renal Disease - Social History Alcohol Use: Occasionally Hx Substance Use: No Substance Use Type: Reports: None Hx Tobacco Use: No Smoking Status (MU): Former Smoker Amount Used/How Often: 1 PPD X 5-6 YEARS Have You Smoked in the Last Year: No Review of Systems Positive: Fatigue Positive: Vomiting, Diarrhea, Nausea All Other Systems Reviewed And Are Negative: Yes Physical Exam - Summary Physical Exam Summary: Appearance: The patient is well-nourished in no acute distress and in no acute pain. Skin: The skin is warm and dry and skin color reflects adequate perfusion. HEENT: The head is normocephalic and atraumatic. The pupils are equal and reactive. The conjunctivae are clear and without drainage. Nares are patent and without drainage. Mouth reveals moist mucous membranes and the throat is without erythema and exudate. The external ears are intact. The ear canals are patent and without drainage. The tympanic membranes are intact. Neck: The neck is supple with full range of motion and non-tender. There are no carotid bruits. There is no neck vein distension. Respiratory: Chest is non-tender. Lungs are clear to auscultation and breath sounds are symmetrical and equal. Cardiovascular: Heart is regular rate and rhythm. There is no murmur or rub auscultated. There is no peripheral edema and pulses are symmetrical and equal. Abdomen: The abdomen is soft and non-tender. There are normal bowel sounds heard in all four quadrants and there is no organomegaly palpated. Musculoskeletal: There is no back tenderness noted. Extremities are non-tender with full range of motion. There is good capillary refill. There is no peripheral edema or calf tenderness elicited. Neurological: Patient is alert and oriented to person, place and time. The patient has symmetrical motor strength in all four extremities. Cranial nerves are grossly intact. Deep tendon reflexes are symmetrical and equal in all four extremities. Psychiatric: The patient has an appropriate affect and does not exhibit any anxiety or depression. Triage Information Reviewed: Yes Vital Signs On Initial Exam: Initial Vitals Temp Pulse Resp BP Pulse Ox 98.0 F 91 16 123/86 98 12/18/18 13:22 12/18/18 13:22 12/18/18 13:22 12/18/18 13:12/18/18 13:22 Vital Signs Reviewed: Yes Diagnostics - Vital Signs Vital Signs Temp Pulse Resp BP Pulse Ox 12/18/18 13:22 98.0 F 91 16 123/86 98 - Laboratory Result Diagrams: 12/18/18 14:20 12/18/18 14:20 Lab Statement: Any lab studies that have been ordered have been reviewed, and results considered in the medical decision making process. - EKG 1355 Cardiac Rate: NL - rate of 76 BPM EKG Rhythm: Sinus Rhythm ST Segment: Normal Ectopy: None Summary of EKG Findings: EKG showed NSR with rate of 76 BPM, no ectopy, normal ST, no STEMI. Re-Evaluation - Re-Evaluation First Eval Re-Evaluation Time: 17:06 Comment: Patient reports that she wants to go home. Patient will be discharged to home and follow up with PCP within three days. GIGU Course/Dx - Course Course Of Treatment: Ms. Cruz presented complaining that she was still having diarrhea. She has basically been on Flagyl for C. difficile for a little over 1 day. She was having crampy abdominal pain. She was rehydrated here. She was nontoxic in appearance with stable vital signs. Her potassium was a little bit low and I recommended we replace it but she did not want to wait. - Diagnoses Provider Diagnoses: C. difficile colitis Discharge - Sign-Out/Discharge Documenting (check all that apply): Patient Departure - discharge Patient Received Moderate/Deep Sedation with Procedure: No - Discharge Plan Condition: Stable Disposition: HOME Patient Education Materials: C Diff (Clostridium Difficile) Infection (ED) Referrals: Yuliya Curran, SENIOR LOSS CONTROL SPECIALIST [Primary Care Provider] - 3 Days Additional Instructions: PLEASE RETURN TO ED FOR ANY NEW OR CONCERNING SYMPTOMS. FOLLOW UP WITH YOUR PRIMARY CARE PHYSICIAN WITHIN THREE DAYS. - Billing Disposition and Condition Condition: STABLE Disposition: Home - Attestation Statements Document Initiated by Scribe: Yes Documenting Scribe: PATRICIA BARNEY Provider For Whom Tex is Documenting (Include Credential): JULIANNE COOL MD Scribe Attestation: PATRICIA Love, scribed for JULIANNE COOL MD on 12/18/18 at 1801. Scribe Documentation Reviewed: Yes Provider Attestation: The documentation as recorded by the PATRICIA eugene accurately reflects the service I personally performed and the decisions made by me, JULIANNE COOL MD Status of Scribe Document: Viewed
[2018-12-18 14:27] LABS: ABS Eosinophils 0.3 10^3/ul (0-0.6); ABS Lymphocytes 1.1 10^3/ul (1.0-4.8); ABS Neutrophils 3.2 10^3/ul (1.5-7.7); Eosinophil % 5.3 %; Hematocrit 38 % (35-47); Hemoglobin 13.3 g/dL (12.0-16.0); Mean Corpuscular HGB Conc 35 g/dL (31-36); Mean Corpuscular Hemoglobin 29 pg (27-31); Mean Corpuscular Volume 83 fL (80-97); Mean Platelet Volume 6.9 fL (7.4-10.4); Platelet Count 233 10^3/uL (150-450); Red Blood Count 4.58 10^6 /uL (3.70-4.87); Red Cell Distribution Width 13 % (10-15); White Blood Count 5.6 10^3/uL (3.5-10.8)
[2018-12-18 14:43] LABS: ALT 16 U/L (7-52); AST 12 U/L (13-39); Albumin 3.6 g/dL (3.2-5.2); Albumin/Globulin Ratio 1.3 (1-3); Alkaline Phosphatase 56 U/L (34-104); Anion Gap 7 mmol/L (2-11); BUN/Creatinine Ratio 12.1 (8-20); Blood Urea Nitrogen 7 mg/dL (6-24); CO2 Carbon Dioxide 28 mmol/L (22-32); Chloride 100 mmol/L (101-111); EGFR African American 130.6 (>60); EGFR Non-African American 107.9 (>60); Globulin 2.8 g/dL (2-4); Glucose 107 mg/dL (70-100); Potassium 3.1 mmol/L (3.5-5.0); Sodium 135 mmol/L (135-145); Total Protein 6.4 g/dL (6.4-8.9)
[2018-12-18] MEDS ORDERED: KCL 20 MEQ/100 ML IVPREMIX* 20 MEQ/100 ML BAG IV ONE (16:06)
[2018-12-18 17:24] VITALS: BP 105/71
== END 2018-12-18 17:25 | disposition home or self-care (01) ==
LOC: ED 13:18
DX: A04.72 Enterocolitis due to Clostridium difficile, not specified as recurrent (principal); K21.9 Gastro-esophageal reflux disease without esophagitis; Z87.891 Personal history of nicotine dependence; Z88.1 Allergy status to other antibiotic agents
CPT/HCPCS: 36415; 80053; 83605; 83690; 85025; 86140; 93005; 96361; 96365; 96366; 99282; J3480